=== PATIENT | male | born 1955 | race Caucasian/White ===

== ENCOUNTER 2023-06-08 15:37 | Outpatient (CLI) | payer MEDICARE, SELFPAY ==
[2023-06-08 07:52] LABS: Abs Immature Grans 0.03 10^3/uL (0.0-0.06); Absolute Basophil Count 0.05 10^3/uL (0.0-0.2); Absolute Eosinophil Count 0.34 10^3/uL (0.0-0.7); Absolute Lymphocyte Count 2.04 10^3/uL (1.2-3.4); Absolute Monocyte Count 0.81 10^3/uL (0.1-0.8); Absolute Neutrophil Count 4.68 10^3/uL (1.2-6.7); Basophils % 0.6; Eosinophils % 4.3; HCT 40.6 % (40.0-50.0); HGB 13.2 g/dL (13.5-17.5); Immature Grans % 0.4; Lymphocytes % 25.7; MCHC 32.5 % (32.0-36.0); MCV 92 fL (80-95); MPV 9.6 fL (8.0-11.0); Monocytes % 10.2; Neutrophils % 58.8; Platelet Count 392 10^3/uL (130-400); RDW 13.4 % (11.8-14.1); RDW-SD 45.9 fL; WBC 7.95 10^3/uL (4.4-10.8)
[2023-06-08 08:19] LABS: ALT 17 U/L (16-63); AST 11 U/L (15-37); Albumin 3.8 g/dL (3.4-5.0); Alkaline Phosphatase 61 U/L (46-116); Anion Gap 6.7 mmol/L (3-11); BUN 26 mg/dL (7-18); Bilirubin, Total 0.4 mg/dL (0.2-1.0); CO2 29.3 mmol/L (21.0-32.0); CREATININE 1.5 mg/dL (0.70-1.30); Calcium 9.5 mg/dL (8.5-10.1); Chloride 103 mmol/L (98-107); Estimated GFR 49.77 (mL/min/1.73m2); FREE T4 0.85 ng/dL (0.76-1.46); Glucose 82 mg/dL (74-106); Potassium 4.6 mmol/L (3.5-5.1); Sodium 139 mmol/L (136-145); Total Protein 8.2 g/dL (6.4-8.2)
== END 2023-06-08 15:38 | disposition home or self-care (01) ==
LOC: LBO 06-10 15:37
PROVIDERS: Visit Provider Internal Medicine
DX: C64.2 Malignant neoplasm of left kidney, except renal pelvis (principal); R94.6 Abnormal results of thyroid function studies
CPT/HCPCS: 36415; 80053; 84439; 84443; 85025

== ENCOUNTER 2023-07-05 05:11 | Outpatient (CLI) | payer MEDICARE, SELFPAY ==
[2023-07-05 12:17] LABS: Abs Immature Grans 0.03 10^3/uL (0.0-0.06); Absolute Basophil Count 0.05 10^3/uL (0.0-0.2); Absolute Eosinophil Count 0.32 10^3/uL (0.0-0.7); Absolute Lymphocyte Count 2.12 10^3/uL (1.2-3.4); Absolute Monocyte Count 0.74 10^3/uL (0.1-0.8); Absolute Neutrophil Count 4.61 10^3/uL (1.2-6.7); Basophils % 0.6 %; Eosinophils % 4.1 %; HCT 40.2 % (40.0-50.0); HGB 13.1 g/dL (13.5-17.5); Immature Grans % 0.4 %; Lymphocytes % 26.9 %; MCH 29.8 pg (27.0-33.0); MCHC 32.6 % (32.0-36.0); MCV 92 fL (80-95); Monocytes % 9.4 %; Neutrophils % 58.6 %; Platelet Count 325 10^3/uL (130-400); RBC 4.39 10^6/uL (4.36-5.78); RDW 13.4 % (11.8-14.1); RDW-SD 45.4 fL; WBC 7.87 10^3/uL (4.4-10.8)
[2023-07-05 12:40] LABS: FREE T4 0.94 ng/dL (0.76-1.46); TSH 2.81 uIU/Ml (0.36-3.74)
[2023-07-05 13:35] LABS: ALT 18 U/L (16-63); AST 12 U/L (15-37); Albumin 3.9 g/dL (3.4-5.0); Alkaline Phosphatase 56 U/L (46-116); Anion Gap 9.6 mmol/L (3-11); BUN 21 mg/dL (7-18); Bilirubin, Total 0.3 mg/dL (0.2-1.0); CO2 28.4 mmol/L (21.0-32.0); CREATININE 1.6 mg/dL (0.70-1.30); Calcium 9.3 mg/dL (8.5-10.1); Chloride 103 mmol/L (98-107); Estimated GFR 46.06 (mL/min/1.73m2); Glucose 87 mg/dL (74-106); Sodium 141 mmol/L (136-145)
== END 2023-07-05 05:12 | disposition home or self-care (01) ==
LOC: LBO 05:11
PROVIDERS: Visit Provider Internal Medicine
DX: C64.2 Malignant neoplasm of left kidney, except renal pelvis (principal); R94.6 Abnormal results of thyroid function studies
CPT/HCPCS: 36415; 80053; 84439; 84443; 85025

== ENCOUNTER 2023-07-27 13:30 | Outpatient (CLI) | payer MEDICARE, SELFPAY ==
[2023-07-27 13:10] LABS: Abs Immature Grans 0.03 10^3/uL (0.0-0.06); Absolute Basophil Count 0.04 10^3/uL (0.0-0.2); Absolute Lymphocyte Count 1.98 10^3/uL (1.2-3.4); Absolute Monocyte Count 0.85 10^3/uL (0.1-0.8); Absolute Neutrophil Count 4.67 10^3/uL (1.2-6.7); Basophils % 0.5 %; Eosinophils % 3.8 %; HCT 40.6 % (40.0-50.0); HGB 13.5 g/dL (13.5-17.5); Immature Grans % 0.4 %; Lymphocytes % 25.2 %; MCH 30.1 pg (27.0-33.0); MCHC 33.3 % (32.0-36.0); MCV 90 fL (80-95); Monocytes % 10.8 %; Neutrophils % 59.3 %; Platelet Count 326 10^3/uL (130-400); RBC 4.49 10^6/uL (4.36-5.78); RDW 13.2 % (11.8-14.1); RDW-SD 43.8 fL; WBC 7.87 10^3/uL (4.4-10.8)
[2023-07-27 14:12] LABS: ALT 22 U/L (16-63); AST 14 U/L (15-37); Albumin 3.8 g/dL (3.4-5.0); Alkaline Phosphatase 56 U/L (46-116); Anion Gap 5.9 mmol/L (3-11); BUN 26 mg/dL (7-18); Bilirubin, Total 0.4 mg/dL (0.2-1.0); CO2 29.1 mmol/L (21.0-32.0); CREATININE 1.6 mg/dL (0.70-1.30); Calcium 8.9 mg/dL (8.5-10.1); Chloride 103 mmol/L (98-107); Estimated GFR 46.06 (mL/min/1.73m2); FREE T4 0.87 ng/dL (0.76-1.46); Glucose 92 mg/dL (74-106); Potassium 4.6 mmol/L (3.5-5.1); Sodium 138 mmol/L (136-145); TSH 2.78 uIU/Ml (0.36-3.74); Total Protein 8.1 g/dL (6.4-8.2)
== END 2023-07-27 13:31 | disposition home or self-care (01) ==
PROVIDERS: Visit Provider Internal Medicine
DX: C64.2 Malignant neoplasm of left kidney, except renal pelvis (principal)
CPT/HCPCS: 36415; 80053; 84439; 84443; 85025

== ENCOUNTER 2023-08-17 09:15 | Outpatient (CLI) | payer MEDICARE, SELFPAY ==
[2023-08-17 09:04] LABS: Abs Immature Grans 0.02 10^3/uL (0.0-0.06); Absolute Basophil Count 0.05 10^3/uL (0.0-0.2); Absolute Eosinophil Count 0.29 10^3/uL (0.0-0.7); Absolute Lymphocyte Count 1.89 10^3/uL (1.2-3.4); Absolute Monocyte Count 0.71 10^3/uL (0.1-0.8); Absolute Neutrophil Count 3.83 10^3/uL (1.2-6.7); Basophils % 0.7 %; Eosinophils % 4.3 %; HCT 42.3 % (40.0-50.0); Immature Grans % 0.3 %; Lymphocytes % 27.8 %; MCHC 33.1 % (32.0-36.0); MCV 91 fL (80-95); MPV 9.7 fL (8.0-11.0); Monocytes % 10.5 %; Neutrophils % 56.4 %; Platelet Count 286 10^3/uL (130-400); RBC 4.67 10^6/uL (4.36-5.78); RDW 12.7 % (11.8-14.1); RDW-SD 41.8 fL; WBC 6.79 10^3/uL (4.4-10.8)
[2023-08-17 09:31] LABS: ALT 22 U/L (16-63); AST 13 U/L (15-37); Albumin 3.9 g/dL (3.4-5.0); Alkaline Phosphatase 61 U/L (46-116); Anion Gap 7.7 mmol/L (3-11); BUN 29 mg/dL (7-18); Bilirubin, Total 0.5 mg/dL (0.2-1.0); CO2 27.3 mmol/L (21.0-32.0); CREATININE 1.6 mg/dL (0.70-1.30); Calcium 9.4 mg/dL (8.5-10.1); Chloride 102 mmol/L (98-107); Estimated GFR 46.06 (mL/min/1.73m2); FREE T4 0.87 ng/dL (0.76-1.46); Glucose 104 mg/dL (74-106); Potassium 4.8 mmol/L (3.5-5.1); Sodium 137 mmol/L (136-145); Total Protein 8.2 g/dL (6.4-8.2)
== END 2023-08-17 09:16 | disposition home or self-care (01) ==
LOC: LBO 09:15
PROVIDERS: Visit Provider Internal Medicine
DX: R94.6 Abnormal results of thyroid function studies (principal); C64.2 Malignant neoplasm of left kidney, except renal pelvis
CPT/HCPCS: 36415; 80053; 84439; 84443; 85025

== ENCOUNTER 2023-09-07 14:25 | Outpatient (CLI) | payer MEDICARE, SELFPAY ==
[2023-09-07 11:56] LABS: Abs Immature Grans 0.04 10^3/uL (0.0-0.06); Absolute Basophil Count 0.06 10^3/uL (0.0-0.2); Absolute Eosinophil Count 0.27 10^3/uL (0.0-0.7); Absolute Lymphocyte Count 2.28 10^3/uL (1.2-3.4); Absolute Monocyte Count 0.89 10^3/uL (0.1-0.8); Absolute Neutrophil Count 6.05 10^3/uL (1.2-6.7); Basophils % 0.6 %; Eosinophils % 2.8 %; HCT 40.5 % (40.0-50.0); HGB 13.7 g/dL (13.5-17.5); Immature Grans % 0.4 %; Lymphocytes % 23.8 %; MCH 29.9 pg (27.0-33.0); MCHC 33.8 % (32.0-36.0); MCV 88 fL (80-95); Monocytes % 9.3 %; Neutrophils % 63.1 %; Platelet Count 295 10^3/uL (130-400); RBC 4.58 10^6/uL (4.36-5.78); RDW 12.8 % (11.8-14.1); RDW-SD 40.9 fL; WBC 9.59 10^3/uL (4.4-10.8)
[2023-09-07 12:19] LABS: ALT 22 U/L (16-63); AST 16 U/L (15-37); Albumin 3.9 g/dL (3.4-5.0); Alkaline Phosphatase 57 U/L (46-116); Anion Gap 8.7 mmol/L (3-11); BUN 31 mg/dL (7-18); CO2 28.3 mmol/L (21.0-32.0); CREATININE 1.8 mg/dL (0.70-1.30); Calcium 9.2 mg/dL (8.5-10.1); Chloride 102 mmol/L (98-107); Estimated GFR 39.99 (mL/min/1.73m2); FREE T4 0.84 ng/dL (0.76-1.46); Glucose 121 mg/dL (74-106); Potassium 4.4 mmol/L (3.5-5.1); Sodium 139 mmol/L (136-145); TSH 1.63 uIU/Ml (0.36-3.74); Total Protein 8.1 g/dL (6.4-8.2)
--- OUTSIDE RECORDS SUMMARY | 2023-09-07 14:28 | XMS_ITS | Continuity of Care Document ---
Author Name Unknown Organization [facility] Ambulatory Clinics Address [address] [place] [address] Care Team Providers Care Junior Recruiter Name Role Phone Kaden Ramirez DO Primary Care Physician Encounter [facility] NBR [id number] Date(s): 03/25/23 - 03/25/23 [facility] [address], [place] [address] Discharge Disposition: Home Allergies, Adverse Reactions, Alerts No Known Medication Allergies Assessment and Plan Future Appointments Social History Social History Type Response Tobacco Former tobacco user Tobacco Use:. Sex Male Patient Care team information Care Team Personnel Name: Kaden Ramirez DO Position: Physician Member Role: Primary Care Physician Address: Address: [address] [place] [id number] [place] Care Team Related Persons Name: STUART MARCANO
--- OUTSIDE RECORDS SUMMARY | 2023-09-07 14:28 | XMS_ITS | Continuity of Care Document ---
Author Name Unknown Organization [facility] Address [address] [place] [id number] Care Team Providers Care Stock Room Manager Name Role Phone Kaden Ramirez DO Primary Care Physician Encounter LTTL_KS FIN NBR [id number] Date(s): 03/26/23 - 03/26/[address] [address] Discharge Disposition: Home or Self Care Attending Physician: Kaden Horn MD Admitting Physician: Kaden Horn MD Allergies, Adverse Reactions, Alerts No Known Medication Allergies Assessment and Plan Extracted from: Title:ED Provider Note Author:Iam Doll Date:03/26/23 Ordered: amoxicillin-clavulanate 875 mg-125 mg oral tablet, 1 tab, Oral, every 12 hr, X 10 days, # 20 tab, 0 Refill(s), 04/05/23 14:33:00 EST Eliquis Starter Pack for Treatment of DVT and PE 5 mg oral tablet, See Instructions, as directed on package labeling. 10 mg twice a day for 1 week, then 5 mg twice a day thereafter, # 1 packets, 0 Refill(s) doxycycline hyclate 100 mg oral tablet, 100 mg = 1 tab, Oral, BID, X 10 days, # 20 tab, 0 Refill(s), 04/05/23 14:33:00 EST NS drip 1,000 mL, Total Volume (mL): 1,000, 1,000 mL, Soln-IV, IV, 125 mL/hr, Order Duration: 30 days, Start Date: 03/26/23 12:15:00 EST, Stop Date: 04/25/23 12:14:00 EST, 77 kg, Populate Charting Weight From Order, 1.96, m2 Discharge Patient, 03/26/23 14:17:00 EST, Home Independently Chest x-ray read out as negative but inflammatory markers came back high with elevated white count, sed rate in the mid 80s.?? Accordingly I was concerned he had an on??diagnosed pneumonia or other process. ??Given his cancer history??as well I thought we should CTA him to exclude??a PE.?? The D-dimer came back after this CT angio; the dimer was in the thousands. ??The CT angio does indeed show a blood clot on the left side but he also has smaller ones on the right??(the 1 on the left his left main).?? Additionally he has a small pneumonia.?? I asked radiology if he has any other??cancer etiology for this??PE given the fact that his??testicular cancer was in the remote past I thought that was unlikely.?? On some of the images??of the abdomen??that were visible on the chest CT I did appreciate as did radiology a mass in the left kidney.?? We subsequently obtained??a CT of the abdomen pelvis with contrast??to work this up further.?? 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 There is no active bleeding anywhere on his scans. ??He has no history of bleeding, no contraindications to??anticoagulation.?? The patient is not hypoxic, not tachycardic, there is no evidence of??right heart strain, he is afebrile,??I do not see a reason to admit him??for either anticoagulation??as an inpatient or??antibiotics as an inpatient. ??I gave the patient??10 mg of Eliquis,??first dose of Augmentin and doxycycline;??I think he should take antibiotics for 10 days, continue the Eliquis? ? and I spoke to his primary care provider about the patient needing a referral to either [facility]??or [facility] for workup of this renal mass.?? I contacted [facility] who gave me a phone number [phone]??in order for him to have a primary care referral within the system that can get him??his biopsy;??I??told the??talk at Dr. Ramirez's office??(where he supposed to follow-up on Wednesday)??of our results and the need for urgent workup and if he could arrange that either at [facility] or at [facility] which ever sooner.?? Patient is to be discharged with??Eliquis/Augmentin??(primary care provider thinks we should avoid??Doxy with Augmentin??and he likely does not need double coverage), follow-up with Dr. Villalpando/Kale's office on Wednesday, follow-up with??referral center for further workup of??presumed renal cell carcinoma??and his pulmonary embolus and pneumonia. 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 10 mg twice a day for 1 week, then 5 mg twice a day thereafter, # 1 packets, 0 Refill(s) Start Date: 03/26/23 Status: Ordered Mental Status 03/26/23 Eye Opening Response [place] Spontaneous ly Best Verbal Response [place] Oriented Best Motor Response Brett Obeys comman ds [place] Coma Score 15 Results Laboratory List Name Date Respiratory Panel 2.1 ([facility]) 03/26/23 .Manual Differential (LTTL) 03/26/23 CBC w/ Diff 03/26/23 Comprehensive Metabolic Panel (CMP) 03/26 D-Dimer 03/26/23 Sedimentation Rate (ESR) 03/26/23 Troponin-I High Sensitivity 03/26/23 Most recent to oldest [Reference Range]: 1 WBC [4.8-10.8 K/mcL] 13.7 K/mcL *HI* (03/26/23 11:39 AM) RBC [4.70-6.10 Million/mcL] 3.97 Million /mcL *LOW* (03/26/23 11:39 AM) Segs Man 80 *NA* (03/26/23 11:39 AM) Lymph Man [20.5-51.1 %] 8.0 % *LOW* (03/26/23 11:39 AM) [place] Man [1.7-9.3 %] 11.0 % *HI* (03/26/23 11:39 AM) Eos Man [0.00-3.00 %] 1.00 % (03/26/23 11:39 AM) BUN [7-25 mg/dL] 20 mg/dL (03/26/23 11:39 AM) Glucose Level [70-109 mg/dL] 112 mg/dL *HI* (03/26/23 11:39 AM) Potassium Level [3.5-5.1 mmol/L] 4.2 mmo l/L (03/26/23 11:39 AM) MCV [80.0-94.0 fL] 91.3 fL (03/26/23 11:39 AM) RBC Morph [Normal] Normal (03/26/23 11:39 AM) AST [13-39 IntlUnit/L] 22 IntlUnit/L (03/26/23 11:39 AM) ALT [7-52 IntlUnit/L] 24 IntlUnit/L (03/26/23 11:39 AM) MCHC [32.0-37.0 g/dL] 33.9 g/dL (03/26/23 11:39 AM) Osmolality [275-295 mOsm/kg] 274 mOsm/kg *LOW* (03/26/23 11:39 AM) Sodium Level [136-145 mmol/L] 135 mmol/L *LOW* (03/26/23 11:39 AM) Hct [42.0-52.0 %] 36.2 % *LOW* (03/26/23 11:39 AM) Calcium Level [8.6-10.3 mg/dL] 9.1 mg/dL (03/26/23 11:39 AM) Albumin Level [3.5-5.7 g/dL] 3.8 g/dL (03/26/23 11:39 AM) Protein Total [6.4-8.9 g/dL] 8.0 g/dL (03/26/23 11:39 AM) MCH [27.0-31.0 pg] 30.9 pg (03/26/23 11:39 AM) Bilirubin Total [0.3-1.0 mg/dL] 1.0 mg/d L (03/26/23 11:39 AM) Hgb [14.0-18.0 g/dL] 12.3 g/dL *LOW* (03/26/23 11:39 AM) Alk Phos [34-104 IntlUnit/L] 69 IntlUnit /L (03/26/23 11:39 AM) MPV [7.4-10.4 fL] 8.9 fL (03/26/23 11:39 AM) Band Man 0 % *NA* (03/26/23:39 AM) Platelets [130-400 K/mcL] 347 K/mcL (03/26/23 11:39 AM) CO2 [21-31 mmol/L] 25 mmol/L (03/26/23 11:39 AM) Chloride Level [98-107 mmol/L] 102 mmol/ L (03/26/23 11:39 AM) RDW-CV [11.5-14.5 %] 12.3 % (03/26/23 11:39 AM) Adenovirus RespP-BFire [Not Detected] No t Detected (03/26/23 12:12 PM) Bordetella parapertussis RespP-BFire [No t Detected] Not Detected (03/26/23 12:12 PM) Bordetella pertussis RespP-BFire [Not De tected] Not Detected (03/26/23 12:12 PM) Chlamydophila pneumoniae RespP-BFire [No t Detected] Not Detected (03/26/23 12:12 PM) Coronavirus 229E (Not COVID-19) RP-BFire [Not Detected] Not Detected (03/26/23 12:12 PM) Coronavirus HKU1 (Not COVID-19) RP-BFire [Not Detected] Not Detected (03/26/23 12:12 PM) Coronavirus NL63 (Not COVID-19) RP-BFire [Not Detected] Not Detected (03/26/23 12:12 PM) Coronavirus OC43 (Not COVID-19) RP-BFire [Not Detected] Not Detected (03/26/23 12:12 PM) Human Metapneumonovirus RespP-BFire [Not Detected] Not Detected (03/26/23 12:12 PM) Human Rhinovirus/Enterovirus RespP-BFir [Not Detected] Not Detected (03/26/23 12:12 PM) Influenza A RespP-BFire [Not Detected] N ot Detected (03/26/23 12:12 PM) Influenza B RespP-BFire [Not Detected] N ot Detected (03/26/23 12:12 PM) Mycomplasma pneumoniae RespP-BFire [Not Detected] Not Detected (03/26/23 12:12 PM) Parainfluenza Virus 1 RespP-BFire [Not D etected] Not Detected (03/26/23 12:12 PM) Parainfluenza Virus 2 RespP-BFire [Not D etected] Not Detected (03/26/23 12:12 PM) Parainfluenza Virus 3 RespP-BFire [Not D etected] Not Detected (03/26/23 12:12 PM) Parainfluenza Virus 4 RespP-BFire [Not D etected] Not Detected (03/26/23 12:12 PM) Respiratory Syncytial Virus RespP-BFire [Not Detected] Not Detected (03/26/23 12:12 PM) A/G Ratio [1.0-2.5 g/dL] 0.9 g/dL *LOW* (03/26/23 11:39 AM) BUN/Creat Ratio [8.0-20.0] 20.0 (03/26/23 11:39 AM) Globulin [2.3-3.5 g/dL] 4.2 g/dL *HI* (03/26/23 11:39 AM) Slide Review Man Diff (03/26/23 11:39 AM) Abs Baso Man [0.0-0.2 K/mcL] 0.0 K/mcL (03/26/23 11:39 AM) Abs Eos Man [0.0-0.2 K/mcL] 0.1 K/mcL (03/26/23 11:39 AM) Abs Lymph Man [1.2-3.4 K/mcL] 1.1 K/mcL *LOW* (03/26/23 11:39 AM) Abs [place] Man [0.1-0.6 K/mcL] 1.5 K/mcL *HI* (03/26/23 11:39 AM) Abs Neut Man [1.4-6.5 K/mcL] 11.0 K/mcL *HI* (03/26/23 11:39 AM) Creatinine Level [0.70-1.30 mg/dL] 1.00 mg/dL (03/26/23 11:39 AM) SARS-CoV-2 (COVID-19) RP-BFire [Not Dete cted] Not Detected (03/26/23 12:12 PM) Plt Estimation Normal (03/26/23 11:39 AM) Employed in healthcare? Unknown *NA* (03/26/23 12:12 PM) Symptomatic as defined by CDC? Unknown *NA* (03/26/23 12:12 PM) Hospitalized due to COVID-19? Unknown *NA* (03/26/23 12:12 PM) In ICU? Unknown *NA* (03/26/23 12:12 PM) Group care resident? Unknown *NA* (03/26/23 12:12 PM) status? Unknown *NA* (03/26/23 12:12 PM) Troponin-I HS [<=20 ng/L] 4 ng/L 1 (03/26/23 11:39 AM) Anion Gap [3.0-12.0] 8.0 (03/26/23 11:39 AM) Baso Man [0.0-0.8 %] 0.0 % (03/26/23 11:39 AM) D Dimer, (Quant.) [<=500 ng(FEU)/mL] 347 2 ng(FEU)/mL 2 *HI* (03/26/23 11:39 AM) eGFR CKD-EPI [>=60 mL/min/1.73 m2] 81 mL /min/1.73 m2 (03/26/23 11:39 AM) ESR, Westergren [0-15 mm/hr] 84 mm/hr *HI* (03/26/23 11:39 AM) 1Interpretive Data: The Anthony ACCESS high-sensitivity Troponin I (hsTNI) 99 percentile cutoffs forhealthy adults are 12 ng/L or less for females and 20 ng/L or less for males. SERIAL MEASUREMENT IS HIGHLY RECOMMENDED for the diagnosis or exclusion of Acute Coronary Syndromes(ACS). Please refer to the High-Sensitivity Troponin Algorithm 2022 for guidance. As with all markers of cardiac injury, elevations of hsTnI do not in and of themselves indicate thepresence of an ischemic mechanism. Many other disease states can be associated with elevations via mechanisms different from those that cause injury in patients with ACS. These include trauma (contusion, ablation, pacing); congestive heart failure; pulmonary embolism; kidney failure; and myocarditis. Clinical judgement is necessary to distinguish patients who have ischemic heart disease from those who do not. 2Interpretive Data: A normal D-dimer result (< or =500 ng/mL FEU) has a negative predicitive value of approximately 95% for the exclusion of acute embolism (PE) or deep vein thrombosis when there is low or moderate pretest PE probability. Radiology Reports * Exam Date Time Procedure Performing Provider Status 03/26/23 1:[address] Abdomen and Pelvis w/ Contrast Cielo Valera; Auth (Verified) Notes: (CT Abdomen and Pelvis w/ Contrast) Reason For Exam: l renal mass CT Abdomen and Pelvis w/ Contrast EXAM DESCRIPTION: CT Abdomen and Pelvis w/ Contrast 03/26/2023 INDICATION: L RENAL MASS TECHNIQUE: All CT scans at this facility use at least one of these dose optimization techniques: Automated exposure control; mA and/or kV adjustment per patient size (includes targeted exams where dose is matched to clinical indication); or iterative reconstruction. Technique: Axial CT images of the abdomen/pelvis with IV contrast administration 75 cc of Isovue-300 contrast was utilized COMPARISON: Same date CT angiography chest examination. FINDINGS: Bilateral pulmonary emboli. Please see same date CT angiography chest examination No focal hepatic lesion. Normal enhancement of the main hepatic veins and main portal vein. Normal spleen size without focal mass No calcified gallstones in the gallbladder. Adrenal glands and pancreas appear within normal limits Lobular heterogeneously enhancing mass involving the mid left kidney consistent with neoplasm which was not fully included on imaging volume from CT angiography chest examination performed earlier today. Mass measures approximately 6.1 x 3.2 x 3.7 cm in transverse, AP and CC dimensions respectively. No focal right renal mass. No evidence of left renal vein tumor thrombus. No hydronephrosis or perinephric fluid collection on either side Normal caliber abdominal aorta No retroperitoneal adenopathy in the abdomen or pelvis. The prostate gland is enlarged with indentation of the bladder base. Prostate neoplasm cannot be excluded based on this finding No bowel dilatation to suggest obstruction or ileus. No free intraperitoneal air, ascites or inflammatory changes. Scattered colonic diverticula. Normal appendix. Small fat containing right inguinal hernia. No suspicious regional osseous lesions. Spondylotic changes in the visualized spinal axis. IMPRESSION: Ovoid heterogeneously enhancing left renal mass measuring 6.1 x 3.2 x 3.7 cm consistent with neoplasm Prostate enlargement with indentation of the bladder base. Neoplastic lesion cannot be excluded based on this finding Otherwise no abdominal/pelvic mass or adenopathy. JOB #: [id number] Final Signed by: Warren Zuniga MD Signed (Electronic Signature): 03/26/2023 1:58 pm * Exam Date Time Procedure Performing Provider Status 03/26/23 1:[address] Angio Chest Antonia Devlin; Harrison (Xenia ified) Notes: (CT Angio Chest) Reason For Exam: chest pain CT Angio Chest EXAM DESCRIPTION: CT Angio Chest N/A INDICATION: CHEST PAIN TECHNIQUE: All CT scans at this facility use at least one of these dose optimization techniques: Automated exposure control; mA and/or kV adjustment per patient size (includes targeted exams where dose is matched to clinical indication); or iterative reconstruction. CT angiography examination of the chest with thin section axial images including sagittal and coronal MPR images performed on a separate workstation under concurrent supervision. 100 cc of Isovue 370 contrast was utilized COMPARISON: None FINDINGS: Prominent filling defect consistent with pulmonary embolism involving the distal aspect of the left main pulmonary artery with extensive filling defects consistent with pulmonary emboli involving segmental and subsegmental left lower lobe pulmonary artery branches. Smaller filling defects consistent with pulmonary emboli involving left upper lobe pulmonary branches as well as peripheral right lower lobe pulmonary artery branches. No findings to suggest significant right ventricular strain. Normal caliber thoracic aorta with no evidence of dissection. Patchy areas of infiltrate in the left lower lobe suspicious for pneumonia with mild subsegmental atelectasis or scarring in the right middle lobe, lingula and right lower lobe. No significant emphysematous changes. No central endobronchial filling defect identified Mild left pleural effusion. No right pleural effusion. No pneumothorax No mediastinal, hilar or axillary adenopathy. No pericardial effusion. Ovoid heterogeneously enhancing solid mass extending from the lateral aspect of the mid left kidney measuring 3.6 x 3.4 cm consistent with neoplasm. No mass or adenopathy otherwise noted in the visualized upper abdomen. No suspicious regional osseous lesions. Spondylotic changes in the visualized spinal axis. IMPRESSION: Bilateral pulmonary emboli as detailed above, left greater than right. Left lower lobe infiltrate suspicious for pneumonia with mild left pleural effusion. Left renal mass measuring 3.6 x 3.4 cm consistent with neoplasm. Results discussed with ER physician at the time of interpretation on 03/26/2023 at 1:15 p.m. EST JOB #: [id number] Final Signed by: Warren Zuniga MD Signed (Electronic Signature): 03/26/2023 1:28 pm * Exam Date Time Procedure Performing Provider Status 03/26/23 11:30 AM XR Chest 1 View Antonia Devlin; Auth (V erified) Notes: (XR Chest 1 View) Reason For Exam: PAIN XR Chest 1 View EXAM DESCRIPTION: XR Chest 1 View 03/26/2023 INDICATION: PAIN COMPARISON: None IMPRESSION: No focal consolidation or pulmonary edema with mild subsegmental atelectasis or scarring in the lateral left lung base Normal cardiomediastinal contour. No significant pleural effusion or pneumothorax. Spondylotic changes of the dorsal spine. JOB #: [id number] Final Signed by: Warren Zuniga MD Signed (Electronic Signature): 03/26/2023 11:39 am Vital Signs Most recent to oldest [Reference Range]: 1 2 3 Temperature Oral [35.8-37.3 Deg C] 37.1 Deg C (03/26/23 11:02 AM) Peripheral Pulse Rate [60-100 bpm] 90 bpm (03/26/23 3:13 PM) 87 bpm (03/26/23 2:13 PM) 90 bpm (03/26/23 1:16 PM) Heart Rate Monitored [60-100 bpm] 90 bpm (03/26/23 3:13 PM) 89 bpm (03/26/23 2:13 PM) 89 bpm (03/26/23 1:16 PM) Respiratory Rate [12-24 br/min] 16 br/min (03/26/23 3:13 PM) 27 br/min *HI* (03/26/23 2:13 PM) 27 br/min *HI* (03/26/23 1:16 PM) Blood Pressure [90-140/60-90 mmHg] 132/79mmHg (03/26/23 3:13 PM) 135/66mmHg (03/26/23 2:13 PM) 140/61mmHg (03/26/23 1:16 PM) Mean Arterial Pressure, Cuff [70-110 mmHg] 97 mmHg (03/26/23 3:13 PM) 89 mmHg (03/26/23 2:13 PM) 87 mmHg (03/26/23 1:16 PM) Mean Arterial Pressure Cuff 92 mmHg (03/26/23 3:13 PM) 86 mmHg (03/26/23 2:13 PM) 90 mmHg (03/26/23 12:33 PM) Weight 77 kg (03/26/23 11:02 AM) Weight Dosing 77.000 kg (03/26/23 11:02 AM) Height 180 cm (03/26/23 11:02 AM) Body Mass Index 23.77 kg/m2 (03/26/23 11:02 AM) Social History Social History Type Response Tobacco Former tobacco user Tobacco Use:. Sex Male Physician Emergency department Note * Kaden Horn MD: PERFORM, MODIFY Event Display: ED Note Physician Authored Date: [id number] KRYSINESSA HERMOSILLO Alcides :1955 Age:67 years Sex:Male Visit Date:03/26/2023 Primary Care Physician: Kaden Ramirez DO Basic Information Time Seen: Kaden Horn MD / 03/26/2023 11:11 Chief Complaint low grade fever, dizziness, difficulty taking a deep breath and right lower back pain X 3 weeks. This began after recieving a COVID vaccine. History Of Present Illness: 67-year-old??well man??takes no medications, complaining of weeks of??a cough, left-sided chest discomfort??worse with breathing,??no clear??URI symptoms but has had??low-grade fevers up to 101??off-and-on including in the last few days.?? No significant sputum, no hemoptysis,??no nasal discharge.?? Denies any leg pain or swelling, no prolonged travel, no recent surgeries, no history of thrombosis.?? 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 Review of Systems: Review of Systems: Constitutional: [Low-grade fevers off and on for weeks] Eye: [No acute visual complaints, no eye discharge] ENT: [No ear pain, nasal congestion, sore throat] Respiratory: +shortness of breath??with activity,??+ cough] Cardiovascular: [Left chest discomfort costal??chondral margin??lower left lung Gastrointestinal: [No nausea, vomiting, or diarrhea. No rectal bleeding or melena] Genitourinary: [No dysuria; no hematuria] Musculoskeletal: [No acute back pain, neck pain, joint pain,] Integumentary: [No rashes] Neurologic: [No focal complaints.??No LOC] ?? Physical Exam: General: [Alert, well nourished, no acute distress].?Not tachycardic not hypoxic, resting heart rate in the 60s, pulse ox??mid to high 90s Eye: [PERRL, EOMI, normal conjunctiva]. HENT: [Normocephalic, normal hearing, moist oral mucosa, no scleral icterus, no nasal discharge].?? Neck: [Ranging neck, normal inspection].?? Lungs: [ non-labored respiration, no tachypnea].?Crackles/slightly decreased breath sounds left base Heart: [Normal rate, regular rhythm, no murmurs]. Abdomen: [Soft, non-tender, non-distended].?? Musculoskeletal: [Normal range of motion and strength, no tenderness or swelling]. Skin: [Skin is warm, no rashes]. Neurologic: [Awake, alert and oriented X4, normal tone, moving all extremities with good strength].[Ambulation intact]. Psychiatric: [Cooperative, appropriate mood and affect]. Physical Exam Vitals & Measurements T:??37.1?C ??(Oral)?? HR:??87??(Peripheral)?? HR:??89??(Monitored)?? RR:??27?? BP:??135/66?? SpO2:??97%?? HT:??180??cm?? WT:??77??kg?? BMI:??23.77?? Procedure No Qualifying Data Assessment/Plan Ordered: amoxicillin-clavulanate 875 mg-125 mg oral tablet, 1 tab, Oral, every 12 hr, X 10 days, # 20 tab, 0Refill(s), 04/05/23 14:33:00 EST Eliquis Starter Pack for Treatment of DVT and PE 5 mg oral tablet, See Instructions, as directed onpackage labeling. 10 mg twice a day for 1 week, then 5 mg twice a day thereafter, # 1 packets, 0 Refill(s) doxycycline hyclate 100 mg oral tablet, 100 mg = 1 tab, Oral, BID, X 10 days, # 20 tab, 0 Refill(s), 04/05/23 14:33:00 EST NS drip 1,000 mL, Total Volume (mL): 1,000, 1,000 mL, Soln-IV, IV, 125 mL/hr, Order Duration: 30 days, Start Date: 03/26/23 12:15:00 EST, Stop Date: 04/25/23 12:14:00 EST, 77 kg, Populate Charting Weight From Order, 1.96, m2 Discharge Patient, 03/26/23 14:17:00 EST, Home Independently Chest x-ray read out as negative but inflammatory markers came back high with elevated white count,sed rate in the mid 80s.?? Accordingly I was concerned he had an on??diagnosed pneumonia or other process. ??Given his cancer history??as well I thought we should CTA him to exclude??a PE.?? The D-dimer came back after this CT angio; the dimer was in the thousands. ??The CT angio does indeed show a blood clot on the left side but he also has smaller ones on the right??(the 1 on the left his left main).?? Additionally he has a small pneumonia.?? I asked radiology if he has any other??cancer etiology for this??PE given the fact that his??testicular cancer was in the remote past I thought that was unlikely.?? On some of the images??of the abdomen??that were visible on the chest CT I did appreciate as did radiology a mass in the left kidney.?? We subsequently obtained??a CT of the abdomen pelvis with contrast??to work this up further.?? 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 There is no active bleeding anywhere on his scans. ??He has no history of bleeding, no contraindications to??anticoagulation.?? The patient is not hypoxic, not tachycardic, there is no evidence of??right heart strain, he is afebrile,??I do not see a reason to admit him??for either anticoagulation??as an inpatient or??antibiotics as an inpatient. ??I gave the patient??10 mg of Eliquis,??first dose of Augmentin and doxycycline;??I think he should take antibiotics for 10 days, continue the Eliquis?and I spoke to his primary care provider about the patient needing a referral to either [facility]??or [facility] for workup of this renal mass.?? I contacted [facility] who gave me a phone number [phone]??in order for him to have a primary care referral within the system that can get him??his biopsy;??I??told the??talk at Dr. Ramirez's office??(where he supposed to follow-up on Wednesday)??of our results and the need for urgent workup and if he could arrange that either at [facility] or at [facility] which ever sooner.?? Patient is to be discharged with??Eliquis/Augmentin??(primary care provider thinks hipolito avoid??Doxy with Augmentin??and he likely does not need double coverage), follow-up with /Kale's office on Wednesday, follow-up with??referral center for further workup of??presumed renal cell carcinoma??and his pulmonary embolus and pneumonia. Patient Discharge Condition Stable Discharge Disposition Home Medication Reconciliation New Prescription amoxicillin-clavulanate (amoxicillin-clavulanate 875 mg-125 mg oral tablet)1 tab Oral (given by mouth) every 12 hours for 10 Days. Refills: 0. ?? apixaban (Eliquis Starter Pack for Treatment of DVT and PE 5 mg oral tablet)as directed on package labeling. 10 mg twice a day for 1 week, then 5 mg twice a day thereafter. Refills: 0. ?? doxycycline (doxycycline hyclate 100 mg oral tablet)1 tab Oral (given by mouth) 2 times a day for 10 Days. Refills: 0. Problem List/Past Medical History Ongoing No qualifying data Historical No qualifying data Medication Administration Given NS drip, 1000 mL, IV NS drip, 500 mL, Medication Bolus amoxicillin-clavulanate 875 mg-125 mg oral tablet, 1 tab, Oral doxycycline, 100 mg, Oral Eliquis, 10 mg, Oral ipratropium-albuterol 0.5 mg-2.5 mg/3 mL inhalation solution, 3 mL, Nebulized Inhalation Allergies No Known Medication Allergies Social History Alcohol Current, 1-2 times per week Electronic Cigarette/Vaping Electronic Cigarette Use: Never. Substance Use Never Tobacco Former tobacco user Tobacco Use:. Diagnostic Results CT Abdomen and Pelvis w/ Contrast 03/26/2023 14:[address] Angio Chest 03/26/2023 13:32 EST XR Chest 1 View 03/26/2023 11:[address] Angio Chest ?? 03/26/23 13:28:28 EXAM DESCRIPTION: CT Angio Chest ?? N/A ?? INDICATION: CHEST PAIN ?? TECHNIQUE: All CT scans at this facility use at least one of these dose optimization techniques: Automated exposure control; mA and/or kV adjustment per patient size (includes targeted exams where dose is matched to clinical indication); or iterative reconstruction. ?? CT angiography examination of the chest with thin section axial images including sagittal and coronal MPR images performed on a separate workstation under concurrent supervision. ?? 100 cc of Isovue 370 contrast was utilized ?? COMPARISON: None ?? FINDINGS: Prominent filling defect consistent with pulmonary embolism involving the distal aspect of the left main pulmonary artery with extensive filling defects consistent with pulmonary emboli involving segmental and subsegmental left lower lobe pulmonary artery branches. Smaller filling defects consistent with pulmonary emboli involving left upper lobe pulmonary branches as well as peripheral right lower lobe pulmonary artery branches. No findings to suggest significant right ventricular strain. ?? Normal caliber thoracic aorta with no evidence of dissection. ?? Patchy areas of infiltrate in the left lower lobe suspicious for pneumonia with mild subsegmental atelectasis or scarring in the right middle lobe, lingula and right lower lobe. No significant emphysematous changes. No central endobronchial filling defect identified ?? Mild left pleural effusion. No right pleural effusion. No pneumothorax ?? No mediastinal, hilar or axillary adenopathy. No pericardial effusion. ?? Ovoid heterogeneously enhancing solid mass extending from the lateral aspect of the mid left kidney measuring 3.6 x 3.4 cm consistent with neoplasm. No mass or adenopathy otherwise noted in the visualized upper abdomen. ?? No suspicious regional osseous lesions. Spondylotic changes in the visualized spinal axis. ?? IMPRESSION: Bilateral pulmonary emboli as detailed above, left greater than right. ?? Left lower lobe infiltrate suspicious for pneumonia with mild left pleural effusion. ?? Left renal mass measuring 3.6 x 3.4 cm consistent with neoplasm. ?? Results discussed with ER physician at the time of interpretation on 03/26/2023 at 1:15 p.m. EST ? JOB #: [id number] Electronically Signed By: ?? Signed By: Warren Zuniga MD ?? CT Abdomen and Pelvis w/ Contrast ?? 03/26/23 13:58:23 EXAM DESCRIPTION: CT Abdomen and Pelvis w/ Contrast ?? 03/26/2023 ?? INDICATION: L RENAL MASS ?? TECHNIQUE: All CT scans at this facility use at least one of these dose optimization techniques: Automated exposure control; mA and/or kV adjustment per patient size (includes targeted exams where dose is matched to clinical indication); or iterative reconstruction. ?? Technique: Axial CT images of the abdomen/pelvis with IV contrast administration ?? 75 cc of Isovue-300 contrast was utilized ?? COMPARISON: Same date CT angiography chest examination. ?? FINDINGS: Bilateral pulmonary emboli. Please see same date CT angiography chest examination ?? No focal hepatic lesion. Normal enhancement of the main hepatic veins and main portal vein. ?? Normal spleen size without focal mass ?? No calcified gallstones in the gallbladder. ?? Adrenal glands and pancreas appear within normal limits ?? Lobular heterogeneously enhancing mass involving the mid left kidney consistent with neoplasm which was not fully included on imaging volume from CT angiography chest examination performed earlier today. Mass measures approximately 6.1 x 3.2 x 3.7 cm in transverse, AP and CC dimensions respectively. No focal right renal mass. No evidence of left renal vein tumor thrombus. No hydronephrosis or perinephric fluid collection on either side ?? Normal caliber abdominal aorta ?? No retroperitoneal adenopathy in the abdomen or pelvis. ?? The prostate gland is enlarged with indentation of the bladder base. Prostate neoplasm cannot be excluded based on this finding ?? No bowel dilatation to suggest obstruction or ileus. No free intraperitoneal air, ascites or inflammatory changes. Scattered colonic diverticula. Normal appendix. Small fat containing right inguinal hernia. ?? No suspicious regional osseous lesions. Spondylotic changes in the visualized spinal axis. ?? IMPRESSION: Ovoid heterogeneously enhancing left renal mass measuring 6.1 x 3.2 x 3.7 cm consistent with neoplasm ?? Prostate enlargement with indentation of the bladder base. Neoplastic lesion cannot be excluded based on this finding ?? Otherwise no abdominal/pelvic mass or adenopathy. ? JOB #: [id number] Electronically Signed By: ?? Signed By: Warren Zuniga MD ?? XR Chest 1 View ?? 03/26/23 11:39:34 EXAM DESCRIPTION: XR Chest 1 View ?? 03/26/2023 ?? INDICATION: PAIN ?? COMPARISON: None ?? IMPRESSION: No focal consolidation or pulmonary edema with mild subsegmental atelectasis or scarring in the lateral left lung base ?? Normal cardiomediastinal contour. ?? No significant pleural effusion or pneumothorax. ?? Spondylotic changes of the dorsal spine. ? JOB #: [id number] Electronically Signed By: ?? Signed By: Warren Zuniga MD Lab Results CBC and Differential?? LATEST RESULTS?? WBC?? 03/26/23 11:39?? 13.7 ??High?? RBC?? 03/26/23 11:39?? 3.97 ??Low?? Hgb?? 03/26/23 11:39?? 12.3 ??Low?? Hct?? 03/26/23 11:39?? 36.2 ??Low?? MCV?? 03/26/23 11:39?? 91.3?? MCH?? 03/26/23 11:39?? 30.9?? MCHC?? 03/26/23 11:39?? 33.9?? RDW-CV?? 03/26/23 11:39?? 12.3?? Platelets?? 03/26/23 11:39?? 347?? MPV?? 03/26/23 11:39?? 8.9?? Segs Man?? 03/26/23 11:39?? 80?? Lymph Man?? 03/26/23 11:39?? 8.0 ??Low?? [place] Man?? 03/26/23 11:39?? 11.0 ??High?? Eos Man?? 03/26/23 11:39?? 1.00?? Baso Man?? 03/26/23 11:39?? 0.0?? Band Man?? 03/26/23 11:39?? 0?? Abs Neut Man?? 03/26/23 11:39?? 11.0 ??High?? Abs Lymph Man?? 03/26/23 11:39?? 1.1 ??Low?? Abs [place] Man?? 03/26/23 11:39?? 1.5 ??High?? Abs Eos Man?? 03/26/23 11:39?? 0.1?? Abs Baso Man?? 03/26/23 11:39?? 0.0?? RBC Morph?? 03/26/23 11:39?? Normal?? Plt Estimation?? 03/26/23 11:39?? Normal?? Slide Review?? 03/26/23 11:39?? Man Diff? Miscellaneous Hematology?? LATEST RESULTS?? ESR, Westergren?? 03/26/23 11:39?? 84 ??High? Coagulation?? LATEST RESULTS?? D Dimer, (Quant.)?? 03/26/23 11:39?? 3472 ??High? Routine Chemistry?? LATEST RESULTS?? Sodium Level?? 03/26/23 11:39?? 135 ??Low?? Potassium Level?? 03/26/23 11:39?? 4.2?? Chloride Level?? 03/26/23 11:39?? 102?? CO2?? 03/26/23 11:39?? 25?? Alk Phos?? 03/26/23 11:39?? 69?? AST?? 03/26/23 11:39?? 22?? ALT?? 03/26/23 11:39?? 24?? BUN?? 03/26/23 11:39?? 20?? Glucose Level?? 03/26/23 11:39?? 112 ??High?? Creatinine Level?? 03/26/23 11:39?? 1.00?? BUN/Creat Ratio?? 03/26/23 11:39?? 20.0?? eGFR CKD-EPI?? 03/26/23 11:39?? 81?? Calcium Level?? 03/26/23 11:39?? 9.1?? Protein Total?? 03/26/23 11:39?? 8.0?? Albumin Level?? 03/26/23 11:39?? 3.8?? Globulin?? 03/26/23 11:39?? 4.2 ??High?? A/G Ratio?? 03/26/23 11:39?? 0.9 ??Low?? Bilirubin Total?? 03/26/23 11:39?? 1.0?? Anion Gap?? 03/26/23 11:39?? 8.0?? Osmolality?? 03/26/23 11:39?? 274 ??Low? Cardiac Isoenzymes?? LATEST RESULTS?? Troponin-I HS?? 03/26/23 11:39?? 4? Infectious Disease?? LATEST RESULTS?? Adenovirus RespP-BFire?? 03/26/23 12:12?? Not Detected?? Bordetella parapertussis RespP-BFire?? 03/26/23 12:12?? Not Detected?? Bordetella pertussis RespP-BFire?? 03/26/23 12:12?? Not Detected?? Chlamydophila pneumoniae RespP-BFire?? 03/26/23 12:12?? Not Detected?? Coronavirus 229E (Not COVID-19) RP-BFire?? 03/26/23 12:12?? Not Detected?? Coronavirus HKU1 (Not COVID-19) RP-BFire?? 03/26/23 12:12?? Not Detected?? Coronavirus NL63 (Not COVID-19) RP-BFire?? 03/26/23 12:12?? Not Detected?? Coronavirus OC43 (Not COVID-19) RP-BFire?? 03/26/23 12:12?? Not Detected?? SARS-CoV-2 (COVID-19) RP-BFire?? 03/26/23 12:12?? Not Detected?? Human Metapneumonovirus RespP-BFire?? 03/26/23 12:12?? Not Detected?? Human Rhinovirus/Enterovirus RespP-BFir?? 03/26/23 12:12?? Not Detected?? Influenza A RespP-BFire?? 03/26/23 12:12?? Not Detected?? Influenza B RespP-BFire?? 03/26/23 12:12?? Not Detected?? Mycomplasma pneumoniae RespP-BFire?? 03/26/23 12:12?? Not Detected?? Parainfluenza Virus 1 RespP-BFire?? 03/26/23 12:12?? Not Detected?? Parainfluenza Virus 2 RespP-BFire?? 03/26/23 12:12?? Not Detected?? Parainfluenza Virus 3 RespP-BFire?? 03/26/23 12:12?? Not Detected?? Parainfluenza Virus 4 RespP-BFire?? 03/26/23 12:12?? Not Detected?? Respiratory Syncytial Virus RespP-BFire?? 03/26/23 12:12?? Not Detected?? Employed in healthcare??? 03/26/23 12:12?? Unknown?? Symptomatic as defined by [facility]??? 03/26/23 12:12?? Unknown?? Hospitalized due to COVID-19??? 03/26/23 12:12?? Unknown?? In ICU??? 03/26/23 12:12?? Unknown?? Group care resident??? 03/26/23 12:12?? Unknown?? status??? 03/26/23 12:12?? Unknown? Electronically Signed on 03/26/23 02:36 PM Kaden Horn MD Electronically Signed on 03/26/23 02:59 PM Kaden Horn MD Emergency department Discharge instructions * Kaden Horn MD: PERFORM Event Display: ED Discharge Information Authored Date: [id number] INESSA MARCANO :1955 Age:67 years Sex:Male Visit Date:03/26/2023 Primary Care Physician: Kaden Ramirez DO Discharge Instructions We would like to thank you for allowing us to assist you with your healthcare needs. The following includes patient education materials and information regarding your injury/illness. Discharge Vitals Temperature??(Oral) 98.8 ??F (37.1 ??C) Heart Rate??(Peripheral) 87 Heart Rate??(Monitored) 89 Respiratory Rate?? 27 Blood Pressure?? 135/66?? Height?? 70.87 in (180 cm) Weight?? 169.78 lb (77 kg) BMI?? 23.77 Allergies No Known Medication Allergies What to Do Next Instructions from Your Care Team Take Eliquis as directed??(10 mg twice a day for 7 days, then 5 mg twice a day thereafter), take Augmentin twice a day??for 10 days each.?? Follow-up with??Dr. Ramirez's office Wednesday;??they are to arrange urgent follow-up with either [facility]or [facility]?for biopsy??of your left renal??mass.?? If you develop worsening shortness of breath??bleeding, coughing up blood, worse trouble breathing,??severe belly pain, passing blood in your urine, high fevers, or anything else acutely worsens?return to emergency immediately. Upcoming Scheduled Appointments Wednesday 9:00 AM EST ?? With: Rinku Almaraz MD Where: [facility] Primary Care [facility] [address] [place] [address]- Status: Confirmed You were treated today on an emergency basis; it may be morse to contact your primary care provider to notify them of your visit today. You may have been referred to your regular doctor or a specialist, please follow up as instructed. If your condition worsens or you can't get in to see the doctor, contact the Emergency Department. Medications What How Much When Instructions Next Dose New amoxicillin-clavulanate (amoxicillin-clavulanate 875 mg-125 mg oral tablet) 1 tab Oral (given by mouth) Every 12 hours Duration: 10 Days Printed Prescription New apixaban (Eliquis Starter Pack for Treatment of DVT and PE 5 mg oral tablet) See instructions as directed on package labeling. ??10 mg twice a day for 1 week, then 5 mg twice a day thereafter ?? Printed Prescription Tests Performed Radiology CT Abdomen and Pelvis w/ Contrast 03/26/2023 14:[address] Angio Chest 03/26/2023 13:32 EST XR Chest 1 View 03/26/2023 11:42 EST Medications and Immunizations Administered Given NS drip, 1000 mL, IV NS drip, 500 mL, Medication Bolus amoxicillin-clavulanate 875 mg-125 mg oral tablet, 1 tab, Oral doxycycline, 100 mg, Oral Eliquis, 10 mg, Oral ipratropium-albuterol 0.5 mg-2.5 mg/3 mL inhalation solution, 3 mL, Nebulized Inhalation Lab Test Name Test Result Date/Time WBC 13.7 K/mcL 03/26/2023 11:39 EST RBC 3.97 Million/mcL 03/26/2023 11:39 EST Hgb 12.3 g/dL 03/26/2023 11:39 EST Hct 36.2 % 03/26/2023 11:39 EST MCV 91.3 fL 03/26/2023 11:39 EST MCH 30.9 pg 03/26/2023 11:39 EST MCHC 33.9 g/dL 03/26/2023 11:39 EST RDW-CV 12.3 % 03/26/2023 11:39 EST Platelets 347 K/mcL 03/26/2023 11:39 EST MPV 8.9 fL 03/26/2023 11:39 EST Segs Man 80 03/26/2023 11:39 EST Lymph Man 8.0 % 03/26/2023 11:39 EST [place] Man 11.0 % 03/26/2023 11:39 EST Eos Man 1.00 % 03/26/2023 11:39 EST Baso Man 0.0 % 03/26/2023 11:39 EST Band Man 0 % 03/26/2023 11:39 EST Abs Neut Man 11.0 K/mcL 03/26/2023 11:39 EST Abs Lymph Man 1.1 K/mcL 03/26/2023 11:39 EST Abs [place] Man 1.5 K/mcL 03/26/2023 11:39 EST Abs Eos Man 0.1 K/mcL 03/26/2023 11:39 EST Abs Baso Man 0.0 K/mcL 03/26/2023 11:39 EST RBC Morph Normal 03/26/2023 11:39 EST Plt Estimation Normal 03/26/2023 11:39 EST Slide Review Man Diff 03/26/2023 11:39 EST ESR, Westergren 84 mm/hr 03/26/2023 11:39 EST D Dimer, (Quant.) 3472 ng(FEU)/mL 03/26/2023 11:39 EST Sodium Level 135 mmol/L 03/26/2023 11:39 EST Potassium Level 4.2 mmol/L 03/26/2023 11:39 EST Chloride Level 102 mmol/L 03/26/2023 11:39 EST CO2 25 mmol/L 03/26/2023 11:39 EST Alk Phos 69 IntlUnit/L 03/26/2023 11:39 EST AST 22 IntlUnit/L 03/26/2023 11:39 EST ALT 24 IntlUnit/L 03/26/2023 11:39 EST BUN 20 mg/dL 03/26/2023 11:39 EST Glucose Level 112 mg/dL 03/26/2023 11:39 EST Creatinine Level 1.00 mg/dL 03/26/2023 11:39 EST BUN/Creat Ratio 20.0 03/26/2023 11:39 EST eGFR CKD-EPI 81 mL/min/1.73 m2 03/26/2023 11:39 EST Calcium Level 9.1 mg/dL 03/26/2023 11:39 EST Protein Total 8.0 g/dL 03/26/2023 11:39 EST Albumin Level 3.8 g/dL 03/26/2023 11:39 EST Globulin 4.2 g/dL 03/26/2023 11:39 EST A/G Ratio 0.9 g/dL 03/26/2023 11:39 EST Bilirubin Total 1.0 mg/dL 03/26/2023 11:39 EST Anion Gap 8.0 03/26/2023 11:39 EST Osmolality 274 mOsm/kg 03/26/2023 11:39 EST Troponin-I HS 4 ng/L 03/26/2023 11:39 EST Adenovirus RespP-BFire Not Detected BF 03/26/2023 12:12 EST Bordetella parapertussis RespP-BFire Not Detect-BioFire 03/26/2023 12:12 EST Bordetella pertussis RespP-BFire Not Detect-BioFire 03/26/2023 12:12 EST Chlamydophila pneumoniae RespP-BFire Not Detect-BioFire 03/26/2023 12:12 EST Coronavirus 229E (Not COVID-19) RP-BFire Not Detect-BioFire 03/26/2023 12:12 EST Coronavirus HKU1 (Not COVID-19) RP-BFire Not Detect-BioFire 03/26/2023 12:12 EST Coronavirus NL63 (Not COVID-19) RP-BFire Not Detect-BioFire 03/26/2023 12:12 EST Coronavirus OC43 (Not COVID-19) RP-BFire Not Detect-BioFire 03/26/2023 12:12 EST SARS-CoV-2 (COVID-19) RP-BFire Not Detect-BioFire 03/26/2023 12:12 EST Human Metapneumonovirus RespP-BFire Not Detect-BioFire 03/26/2023 12:12 EST Human Rhinovirus/Enterovirus RespP-BFir Not Detect-BioFire 03/26/2023 12:12 EST Influenza A RespP-BFire Not Detect-BioFire 03/26/2023 12:12 EST Influenza B RespP-BFire Not Detect-BioFire 03/26/2023 12:12 EST Mycomplasma pneumoniae RespP-BFire Not Detect-BioFire 03/26/2023 12:12 EST Parainfluenza Virus 1 RespP-BFire Not Detect-BioFire 03/26/2023 12:12 EST Parainfluenza Virus 2 RespP-BFire Not Detect-BioFire 03/26/2023 12:12 EST Parainfluenza Virus 3 RespP-BFire Not Detect-BioFire 03/26/2023 12:12 EST Parainfluenza Virus 4 RespP-BFire Not Detect-BioFire 03/26/2023 12:12 EST Respiratory Syncytial Virus RespP-BFire Not Detect-BioFire 03/26/2023 12:12 EST Employed in healthcare? Unknown 03/26/2023 12:12 EST Symptomatic as defined by CDC? Unknown 03/26/2023 12:12 EST Hospitalized due to COVID-19? Unknown 03/26/2023 12:12 EST In ICU? Unknown 03/26/2023 12:12 EST Group care resident? Unknown 03/26/2023 12:12 EST status? Unknown 03/26/2023 12:12 EST Patient/Small Business Banking Officer Signature Patient Name:INESSA MARCANO I have received this information and my questions have been answered. Patient/Small Business Banking Officer Name: Patient/Small Business Banking Officer Signature: Relationship to Patient: Witness Name/Signature: Date: Electronically Signed on: 03/26/2023 15:05 ESTSigned by:UMM Patient Care team information Care Team Personnel Name: Kaden Ramirez DO Position: Physician Member Role: Primary Care Physician Address: Address: [address] [place] [id number] [place] Care Team Related Persons Name: STUART MARCANO
--- OUTSIDE RECORDS SUMMARY | 2023-09-07 14:28 | XMS_ITS | Continuity of Care Document ---
Author Name Unknown Organization [facility] Ambulatory [facility] Address [address] [place] [address] Care Team Providers Care Television Newscast Director Name Role Phone Kaden Ramirez DO Primary Care Physician Encounter [facility] NBR [id number] Date(s): 04/23/23 - 04/23/23 [facility] [address] [place] [id number] Discharge Disposition: Home Allergies, Adverse Reactions, Alerts No Known Medication Allergies Assessment and Plan Future Appointments Medications Eliquis 5 mg oral tablet 5 mg = 1 tab, Oral, BID, # 60 tab, 11 Refill(s) Start Date: 04/15/23 Status: Ordered Problem List Condition Confirmation Course Effective Dates Status Health St atus Informant Enlarged prostate Confirmed Active Testicular cancer Confirmed Active Pulmonary embolism Confirmed Active Renal mass, left Confirmed Active Procedures Procedure Date Related Diagnosis Body Site Status Orchiectomy 1 Completed Procedure 2 Completed [id number] 2Greenlight 2018 Social History Social History Type Response Tobacco Former tobacco user Tobacco Use:. Sex Male Patient Care team information Care Team Personnel Name: Kaden Ramirez DO Position: Physician Member Role: Primary Care Physician Address: Address: [address] [place] [id number] Care Team Related Persons Name: STUART MARCANO
--- OUTSIDE RECORDS SUMMARY | 2023-09-07 14:28 | XMS_ITS | Continuity of Care Document ---
Author Name Unknown Organization [facility] Ambulatory Clinics Address [address] [place] [address] Care Team Providers Care Printer Assistant Name Role Phone Kaden Ramirez DO Primary Care Physician Encounter [facility] FIN NBR [id number] Date(s): 03/31/23 - 03/31/23 [facility] Ambulatory Clinics [address] [place] [address]- Encounter Diagnosis Renal cell carcinoma(Discharge Diagnosis) - 03/31/23 Discharge Disposition: Home or Self Care Attending Physician: Rinku Almaraz MD Allergies, Adverse Reactions, Alerts No Known Medication Allergies Functional Status 03/31/23 Living Environment Home Environment No qualifying data available Other exposure to Infectious Disease Non e Medications amoxicillin-clavulanate 875 mg-125 mg oral tablet 1 tab, Oral, every 12 hr, X 10 days, # 20 tab, 0 Refill(s), 04/05/23 1:33:00 PM [employer] Start Date: 03/26/23 Stop Date: 04/05/23 Status: Ordered Eliquis Starter Pack for Treatment of DVT and PE 5 mg oral tablet See Instructions, as directed on package labeling. 10 mg twice a day for 1 week, then 5 mg twice a day thereafter, # 1 packets, 0 Refill(s) Start Date: 03/26/23 Status: Ordered Problem List Condition Confirmation Course Effective Dates Status Health St atus Informant Enlarged prostate Confirmed Active Testicular cancer Confirmed Active Pulmonary embolism Confirmed Active Renal mass, left Confirmed Active Procedures Procedure Date Related Diagnosis Body Site Status Orchiectomy 1 Completed Procedure 2 Completed [id number] 2018 Vital Signs Most recent to oldest [Reference Range]: 1 Temperature Tympanic [36.6-38.1 Deg C] 3 7.0 Deg C (03/31/23 8:52 AM) Apical Heart Rate [60-100 bpm] 77 bpm (03/31/23 8:52 AM) Blood Pressure [90-140/60-90 mmHg] 128/7 0mmHg (03/31/23 8:52 AM) Mean Arterial Pressure, Cuff [70-110 mmH g] 89 mmHg (03/31/23 8:52 AM) Weight 77.6 kg (03/31/23 8:52 AM) Weight Measured (lbs) 171.079 lb (03/31/23 8:52 AM) Weight Dosing 77.600 kg (03/31/23 8:52 AM) [place] Body Weight Calculated 75.3 kg (03/31/23 8:52 AM) Height 180.34 cm (03/31/23 8:52 AM) Height/Length Measured (inches) 71 inch (03/31/23 8:52 AM) BSA Measured 1.97 m2 (03/31/23 8:52 AM) Body Mass Index 23.86 kg/m2 (03/31/23 8:52 AM) Social History Social History Type Response Tobacco Former tobacco user Tobacco Use:. Sex Male Physician Outpatient Note * Rinku Almaraz MD: PERFORM Event Display: Office Clinic Note Physician Authored Date: [id number] INESSA MARCANO :1955 Age:67 years Sex:Male Visit Date:03/31/2023 Primary Care Physician: Kaden Ramirez DO Chief Complaint Pt. is here today for from ED 02/24/24 pt. has had low gradre fever 100.5, for 3 weeks, had ??SOB, dizziness has subsided, from his ED visit, ??Pt. had CT they had found growth on left kidney, and PEpt. had appt @ [facility] Additional Information with Urolog 03/30/23. Where they are planning to do left renal removal Pt. would like to discuss options maybe second opinion. Pt. is currenty taken Eliquis. History of Present Illness 67 y old with 3.6cm L renal mass found on CTA for pulm embolus which was also positive. Was given 10 days of augmentin which he has 5 days left of for CT findings consistent with pneumonia. Was put on eliquis for the PE. Now saw urology who wants to decide how to proceed with radical L nephrectomy in face of PE and anticoagulation; they are thinking a months time. Pt is pain free does have occasional bouts of gen mild cough. 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 Physical Exam Vitals & Measurements T:??37.0?C ??(Tympanic)?? HR:??77??(Apical)?? BP:??128/70?? SpO2:??96%?? HT:??180.34??cm?? WT:??77.6??kg?? BMI:??23.86?? BSA:??1.97?? alert and oriented, appropriate No facial droop, speech clear Neck FROM no goiter, jvd or bruit Chest clear H:RRR no mgr Abd: soft NT no HSM Ext: no edema Skin: no jaundice Medical Decision Makin y old with 3.6 cm central renal mass thought to be renal cell CA, complicated by large L PE and likely post obstructive pneumonia, feels well remains on eliquis and augmentin. Has seen urology who is planning radical L nephrectomy in about a months time. Continue eliquis and?? finish course of augmentin. Will followup in clinic as needed Problem List/Past Medical History Ongoing Enlarged prostate Pulmonary embolism Renal mass, left Testicular cancer Historical No qualifying data Procedure/Surgical History ???Orchiectomy???Procedure Medications amoxicillin-clavulanate 875 mg-125 mg oral tablet, 1 tab, Oral, every 12 hr Eliquis Starter Pack for Treatment of DVT and PE 5 mg oral tablet, See Instructions Allergies No Known Medication Allergies Social History Alcohol Current, 1-2 times per week Electronic Cigarette/Vaping Electronic Cigarette Use: Never. Substance Use Never Tobacco Former tobacco user Tobacco Use:. Family History Enlarged prostate: Brother and Brother. Family Member(s): ?? FATHER, at age: Unknown. Cause of : Family Member(s): ?? MOTHER, at age: Unknown. Cause of : Electronically Signed on 03/31/23 10:05 AM Rinku Almaraz MD Patient Care team information Care Team Personnel Name: Kaden Ramirez DO Position: Physician Member Role: Primary Care Physician Address: Address: [address] [place] [id number] [place] Care Team Related Persons Name: STUART MARCANO
--- OUTSIDE RECORDS SUMMARY | 2023-09-07 14:28 | XMS_ITS | Continuity of Care Document ---
Author Name Unknown Organization [facility] Address [address] [place] [address] Care Team Providers Care Radiology Nurse Name Role Phone Kaden Ramirez DO Primary Care Physician Encounter Date(s): 07/20/23 - 07/20/[address] [address] Encounter Diagnosis Seminoma(Discharge Diagnosis) - 07/20/23 Raised prostate specific antigen(Discharge Diagnosis) - 07/20/23 Benign prostatic hyperplasia with outflow obstruction(Discharge Diagnosis) - 07/20/23 Discharge Disposition: Home or Self Care Attending Physician: Conner Santo MD Admitting Physician: Conner Santo MD Referring Physician: Conner Santo MD Allergies, Adverse Reactions, Alerts No Known Allergies Assessment and Plan Future Appointments Appointment Date:07/30/2023 11:00:00 AM Scheduled Provider:Conner Santo MD Location:[facility] Appointment Type:URO ROV Routine Office Visit Diagnostic Tests Pending * Alpha Fetoprotein Tumor Marker 07/20/23 * Beta-hCG Quant Tumor Marker-[facility] 07/20/23 * PSA Total with Free PSA-[facility] 07/20/23 Problem List Condition Confirmation Course Effective Dates Status H ealth Status Informant Benign prostatic hyperplasia with outflow obstruction Confirmed Active Gastroesophageal reflux disease Confirmed Active Hiatal hernia Confirmed Active Raised prostate specific antigen 1 Confirmed Active Retention of urine Confirmed Active Seminoma 2 Confirmed Active 1Outside Source Comment: Post truss biopsy prostate 04/23/2017 for a PSA of 6.74 negative for malignancy. Findings revealed chronic inflammation and atrophy. Prostate volume 43.1 cc. 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 Tumor markers, sanford ve all been negative. Procedures Procedure Date Related Diagnosis Body Site Status COLLECTION VENOUS BLOOD VENIPUNCTURE 07/20/23 Completed Endoscopy of stomach (procedure) 03/10/12 Completed Testis excision (procedure) 1 01/07/10 Completed Tonsillectomy and adenoidect dalton (procedure) Completed Vasectomy (procedure) Com pleted 1Outside Source Comment: left radical Results Laboratory List Name Date .Estimated Glomerular Filtration Rate Complete Blood Count with Differential ( CBC w/ Differential) 07/20/23 Comprehensive Metabolic Panel (CMP) 07/19 Lactate Dehydrogenase (LDH) 07/20/23 Differential, Auto 07/20/23 Most recent to oldest [Reference Range]: 1 WBC [4.23-9.07 x10^3/mcL] 7.95 x10^3/mcL (07/20/23 1:25 PM) RBC [3.50-5.98 x10^6/mcL] 4.40 x10^6/mcL (07/20/23 1:25 PM) Neutro Auto [40.0-70.0 %] 57.0 % (07/20/23 1:25 PM) Lymph Auto [22.0-44.0 %] 27.3 % (07/20/23 1:25 PM) [place] Auto [4.0-11.0 %] 10.8 % (07/20/23 1:25 PM) Eos Auto [0.0-8.0 %] 4.2 % (07/20/23 1:25 PM) Basophil Auto [0.0-3.0 %] 0.6 % (07/20/23 1:25 PM) BUN [6-26 mg/dL] 28 mg/dL *HI* (07/20/23 1:25 PM) Glucose Level [70-99 mg/dL] 91 mg/dL 1 (07/20/23 1:25 PM) Potassium Level [3.5-5.1 mmol/L] 4.0 mmo l/L (07/20/23 1:25 PM) Absolute Basophil Count [<=0.08 x10^3/mc L] 0.05 x10^3/mcL (07/20/23 1:25 PM) MCV [80.0-100.0 fL] 87.7 fL (07/20/23 1:25 PM) AST [5-32 IntlUnit/L] 15 IntlUnit/L (07/20/23 1:25 PM) ALT [12-78 IntlUnit/L] 18 IntlUnit/L (07/20/23 1:25 PM) MCHC [31.0-37.0 g/dL] 33.9 g/dL (07/20/23 1:25 PM) Sodium Level [136-143 mmol/L] 138 mmol/L (07/20/23 1:25 PM) Absolute Lymphocyte Count [0.73-2.76 x10 ^3/mcL] 2.17 x10^3/mcL (07/20/23 1:25 PM) Hct [35.0-51.0 %] 38.6 % (07/20/23 1:25 PM) Calcium Level [8.3-10.1 mg/dL] 9.2 mg/dL (07/20/23 1:25 PM) Absolute Monocyte Count [0.30-0.82 x10^3 /mcL] 0.86 x10^3/mcL *HI* (07/20/23 1:25 PM) Albumin Level [3.4-4.9 g/dL] 3.8 g/dL (07/20/23 1:25 PM) Protein Total [6.5-8.4 g/dL] 8.3 g/dL (07/20/23 1:25 PM) MCH [24.4-34.5 pg] 29.8 pg (07/20/23 1:25 PM) Bilirubin, Total [0.2-1.0 mg/dL] 0.5 mg/ dL (07/20/23 1:25 PM) Hgb [12.0-17.4 g/dL] 13.1 g/dL (07/20/23 1:25 PM) Alk Phos [45-117 IntlUnit/L] 62 IntlUnit /L (07/20/23 1:25 PM) LDH [100-190 IntlUnit/L] 137 IntlUnit/L (07/20/23 1:25 PM) MPV [9.1-13.2 fL] 11.1 fL (07/20/23 1:25 PM) Platelets [150-400 x10^3/mcL] 300 x10^3/ mcL (07/20/23 1:25 PM) CO2 [21-32 mmol/L] 24 mmol/L (07/20/23 1:25 PM) Absolute Eosinophil Count [0.04-0.54 x10 ^3/mcL] 0.33 x10^3/mcL (07/20/23 1:25 PM) RDW [11.9-16.0 %] 13.1 % (07/20/23 1:25 PM) Chloride Level [101-111 mmol/L] 107 mmol /L (07/20/23 1:25 PM) Creatinine, Enzymatic [0.67-1.17 mg/dL] 1.48 mg/dL *HI* (07/20/23 1:25 PM) Absolute Neutrophil Count [1.78-5.38 x10 ^3/mcL] 4.53 x10^3/mcL (07/20/23 1:25 PM) Globulin [2.7-4.7 g/dL] 4.5 g/dL (07/20/23 1:25 PM) IG Auto [0.0-3.0 %] 0.1 % (07/20/23 1:25 PM) A/G Ratio [0.9-2.3] 0.8 *LOW* (07/20/23 1:25 PM) BUN/Creat Ratio 18.9 ratio 2 *NA* (07/20/23 1:25 PM) Absolute Immature Granulocyte Count [0.0 0-0.40 x10^3/mcL] <0.04 x10^3/mcL (07/20/23 1:25 PM) eGFR CKD-EPI [>=60 mL/min/1.73m2] 51 mL/ min/1.73m2 *LOW* (07/20/23 1:25 PM) Anion Gap [2.0-11.0] 7.0 (07/20/23 1:25 PM) 1Interpretive Data: Impairment: Fasting glucose 100-125 mg/dL Diabetes Mellitus: Fasting glucose >=126 mg/dL Random glucose >=200 mg/dL 2Interpretive Data: The BUN/Creatinine ratio has a low predictive value and results should not be considered an absolute indicator of a specific disease process. Most individuals have a reference interval between 12 and 20. The ratio should only be utilized as a rough guide to the nature of an underlying abnormality. High ratio with normal creatinine levels are associated with prerenal azotemia (high protein intake, increased tissue breakdown and after gastrointestinal hemorrhage). High ratio with elevated creatinine levels are seen in postrenal azotemia (i.e. urinary tract obstruction) Low ratios are associated with decreased urea production, low protein intake, starvation, severe liver damage and acute tubular necrosis. In most cases of chronic renal disease, the ratio remains relatively normal. Social History Social History Type Response Smoking Status Never smoker; Type: Cigarettes entered on: 04/27/22 Sex Male Patient Care team information Care Team Personnel Name: Kaden Ramirez DO Position: Physician - Primary Care Member Role: Primary Care Provider Address: Address: [address] [place] [phone]- Care Team Related Persons Name: CONNER MARCANO
--- OUTSIDE RECORDS SUMMARY | 2023-09-07 14:28 | XMS_ITS | Continuity of Care Document ---
Author Name Unknown Organization [facility] Address [address] [place] [address] Care Team Providers Care Nail Technician Name Role Phone Kaden Ramirez DO Primary Care Physician [phone] Encounter 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 Testicular cancer(Discharge Diagnosis) - 07/14/23 Pulmonary embolism(Discharge Diagnosis) - 07/14/23 Malignant neoplasm of unspecified kidney, except renal pelvis(Final) - Malignant neoplasm of unspecified testis, unspecified whether descended or undescended(Final) - Other pulmonary embolism without acute cor pulmonale(Final) - Discharge Disposition: Home or Self Care Attending Physician: Kaden Ramirez DO Allergies, Adverse Reactions, Alerts No Known Medication Allergies Assessment and Plan Extracted from: Title:Office Visit Note Author:Kaden Ramirez DO Date:07/14/23 1.??Clear cell renal cell ca rcinoma??C64.9 ??Tolerated the nephrectomy surgery,??recovered okay.?? Now undergoing??infusions, which she seems to tolerating well. 2.??Testicular cancer??C62.90 ??Also removed at time of kidney??surgery. 3.??Pulmonary embolism??I26.99 ??Continues on Eliquis, at least for 3 months.?? Considering whether he should stay on it for treatment for his cancer.?? Will defer to hematology/oncology. Future Appointments Immunizations Given and Recorded Vaccine Date Status Refusal Reason tetanus/diphth/pertuss (Tdap) adult/adol 12/24/14 Recorded Medications Eliquis 5 mg oral tablet 5 mg = 1 tab, Oral, BID, # 60 tab, 11 Refill(s) Start Date: 04/15/23 Status: Ordered Problem List Condition Confirmation Course Effective Dates Status Health St atus Informant Enlarged prostate Confirmed Active Testicular cancer Confirmed Active Pulmonary embolism Confirmed Active Procedures Procedure Date Related Diagnosis Body Site Status Orchiectomy 1 Completed Procedure 2 Completed Procedure 3 Completed [id number] 2[facility] 2018 3Left kidney removal April 20 2023..in [facility] Vital Signs Most recent to oldest [Reference Range]: 1 Peripheral Pulse Rate [60-100 bpm] 54 bp m *LOW* (07/14/23 8:43 AM) Blood Pressure [90-140/60-90 mmHg] 132/7 8mmHg (07/14/23 8:43 AM) Mean Arterial Pressure, Cuff [65-140 mmH g] 96 mmHg (07/14/23 8:43 AM) Weight 74.20 kg (07/14/23 8:43 AM) Weight Measured (lbs) 163.583 lb (07/14/23 8:43 AM) Weight Dosing 74.200 kg (07/14/23 8:43 AM) Social History Social History Type Response Tobacco Former tobacco user Tobacco Use:. Sex Male Hospital Discharge Instructions Follow Up Care 06/03/2023 10:28:12 With:Kaden Ramirez DO Address: [address] [place] [phone] When:1 Year Physician Outpatient Note * Kaden Ramirez DO: PERFORM Event Display: Office Clinic Note Physician Authored Date: [id number] INESSA MARCANO :1955 Age:68 years Sex:Male Visit Date:07/14/2023 Primary Care Physician: Kaden Ramirez DO Chief Complaint Patient is here today for a 3 month follow up. Has had 2 infusions History of Present Illness Patient is a 68-year-old male who comes in today for follow-up.?? Had a left nephrectomy. ??Sees oncology.?? Seems to be tolerating infusions well. ??Continues on his Eliquis.?? Have indicated that he can come off after 3 months, although there was some question in the oncology note as to whether he should stay on it at least through treatment??for his cancer. Review of Systems See HPI otherwise negative. Physical Exam Vitals & Measurements HR:??54??(Peripheral)?? BP:??132/78?? SpO2:??98%?? WT:??74.20??kg?? General: Alert and oriented, well nourished,?No??acute distress Lungs: Clear to auscultation and percussion,?Non-labored?? respiration Heart:?Normal? rate,?Regular??rhythm,?No??murmur,?No??gallop,?No??edema Abdomen: Soft, non-tender, non-distended,?Normal? bowel sounds,?No??masses Musculoskeletal:?Normal? range of motion and strength,?No??tenderness,?No??swelling ?? Assessment/Plan 1.??Clear cell renal cell carcinoma??C64.9 ??Tolerated the nephrectomy surgery,??recovered okay.?? Now undergoing??infusions, which she seems to tolerating well. 2.??Testicular cancer??C62.90 ??Also removed at time of kidney??surgery. 3.??Pulmonary embolism??I26.99 ??Continues on Eliquis, at least for 3 months.?? Considering whether he should stay on it for treatment for his cancer.?? Will defer to hematology/oncology. Follow Up Instructions With When Contact Information Kaden Ramirez DO Within 1 Year [address] [place] [address] Additional Instructions: Problem List/Past Medical History Ongoing Enlarged prostate Pulmonary embolism Testicular cancer Historical Renal mass, left Procedure/Surgical History ???Orchiectomy???Procedure???Procedure Medications Eliquis 5 mg oral tablet, 5 mg= 1 tab, Oral, BID, 11 refills Allergies No Known Medication Allergies Social History Alcohol Past, 1-2 times per week Electronic Cigarette/Vaping Electronic Cigarette Use: Never. Substance Use Never Tobacco Former tobacco user Tobacco Use:. Family History Enlarged prostate: Brother and Brother. Family Member(s): ?? FATHER, at age: Unknown. Cause of : Family Member(s): ?? MOTHER, at age: Unknown. Cause of : Immunizations Vaccine Date Status tetanus/diphth/pertuss (Tdap) adult/adol 12/24/2014 Recorded Electronically Signed on 07/14/23 09:33 AM Kaden Ramirez DO Patient Care team information Care Team Personnel Name: Kaden Ramirez DO Position: Physician Member Role: Primary Care Physician Address: Address: [address] [place] [phone] [place] Care Team Related Persons Name: STUART MARCANO
--- OUTSIDE RECORDS SUMMARY | 2023-09-07 14:28 | XMS_ITS | Continuity of Care Document ---
Author Name Unknown Organization [facility] Address [address] [place] [address] Care Team Providers Care Roadside Mechanic Name Role Phone Kaden Ramirez DO Primary Care Physician Encounter [facility] [facility] NBR [id number] Date(s): 03/26/23 - 03/26/23 [facility] [address] [place] [id number] Discharge Disposition: Home Allergies, Adverse Reactions, Alerts No Known Medication Allergies Assessment and Plan Future Appointments Medications amoxicillin-clavulanate 875 mg-125 mg oral tablet 1 tab, Oral, every 12 hr, X 10 days, # 20 tab, 0 Refill(s), 04/05/23 1:33:00 PM 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 10 mg twice a day for 1 week, then 5 mg twice a day thereafter, # 1 packets, 0 Refill(s) Start Date: 03/26/23 Status: Ordered Social History Social History Type Response Tobacco Former tobacco user Tobacco Use:. Sex Male Patient Care team information Care Team Personnel Name: Kaden Ramirez DO Position: Physician Member Role: Primary Care Physician Address: Address: [address] [place] [phone] [place] Care Team Related Persons Name: STUART MARCANO
--- OUTSIDE RECORDS SUMMARY | 2023-09-07 14:28 | XMS_ITS | Continuity of Care Document ---
Author Name Unknown Organization [facility] Address [address] [place] [phone] Care Team Providers Care Oil Tanker Captain Name Role Phone Kaden Ramirez DO Primary Care Physician Encounter [facility] NBR [id number] Date(s): 05/31/23 - 05/31/[address] [address] [place] Discharge Disposition: Home or Self Care Attending Physician: ANAYELI MAYEN ([facility])LIDA Admitting Physician: ANAYELI MAYEN ([facility])LIDA Referring Physician: ANAYELI MAYEN ([facility])LIDA Allergies, Adverse Reactions, Alerts No Known Medication [...] Status Orchiectomy 1 Completed [facility] 2 [id number] Results Rad[facility] Reports * Exam Date Time Procedure Performing Provider Status 05/31/23 3:[address] Abdomen and Pelvis w/ Contrast Antonia Bonilla; Harrison (Verified) Notes: (CT Abdomen and Pelvis w/ Contrast) Reason For Exam: CLEAR CELL RENAL CELL CARCINOMA CT Abdomen and Pelvis w/ Contrast PROCEDURE INFORMATION: Exam: CT Abdomen And Pelvis With Contrast Exam date and time: 05/31/2023 2:53 PM Age: 68 years old Clinical indication: Malignant neoplasm of left kidney, except renal pelvis; Additional info: Clear cell renal cell carcinoma TECHNIQUE: Imaging protocol: Computed tomography of the abdomen and pelvis with contrast. Radiation optimization: All CT scans at this facility use at least one of these dose optimization techniques: automated exposure control; mA and/or kV adjustment per patient size (includes targeted exams where dose is matched to clinical indication); or iterative reconstruction. Contrast material: ISOVUE 300; Contrast volume: 100 ml; Contrast route: INTRAVENOUS (IV); COMPARISON: CT ABD/PELVIS W CONTRAST 03/26/2023 1:35 PM FINDINGS: Lungs: Findings in lung bases described separately in same-day CT chest report Liver: Normal. No mass. Gallbladder and bile ducts: Normal. No calcified stones. No ductal dilation. Pancreas: Normal. No ductal dilation. Spleen: Normal. No splenomegaly. Adrenal glands: Normal. No mass. Kidneys and ureters: Left kidney is now surgically absent Stomach and bowel: Unremarkable. No obstruction. No mucosal thickening. Appendix: No evidence of appendicitis. Intraperitoneal space: Unremarkable. No free air. No significant fluid collection. Vasculature: Unremarkable. No abdominal aortic aneurysm. Lymph nodes: Unremarkable. No enlarged lymph nodes. Urinary bladder: Unremarkable as visualized. Reproductive: Heterogeneous mildly enlarged prostate again noted Bones/joints: Unremarkable. No acute fracture. Soft tissues: Unremarkable. IMPRESSION: No acute findings. Status post left nephrectomy THIS DOCUMENT HAS BEEN ELECTRONICALLY SIGNED BY SEA DE LA O MD on 05/31/2023 04:07 PM Final Signed by: Sea De La O MD Signed (Electronic Signature): 05/31/2023 4:07 pm * Exam Date Time Procedure Performing Provider Status 05/31/23 3:[address] Chest w/ Contrast Antonia Devlin; Harrison (Verified) Notes: (CT Chest w/ Contrast) Reason For Exam: CLEAR RENAL CELL CARCINOMA CT Chest w/ Contrast PROCEDURE INFORMATION: Exam: CT Chest With Contrast; Diagnostic Exam date and time: 05/31/2023 2:53 PM Age: 68 years old Clinical indication: Malignant neoplasm of left kidney, except renal pelvis; Additional info: Clear renal cell carcinoma TECHNIQUE: Imaging protocol: Diagnostic computed tomography of the chest with contrast. Radiation optimization: All CT scans at this facility use at least one of these dose optimization techniques: automated exposure control; mA and/or kV adjustment per patient size (includes targeted exams where dose is matched to clinical indication); or iterative reconstruction. Contrast material: ISOVUE 300; Contrast volume: 100 ml; Contrast route: INTRAVENOUS (IV); COMPARISON: CT ANGIO CHEST 03/26/2023 12:56 PM FINDINGS: Lungs: Lungs are mildly hyperinflated. No consolidation. No pulmonary nodules. Linear bands of scarring lateral left lower lobe Pleural spaces: Unremarkable. No pneumothorax. No pleural effusion. Heart: Unremarkable. No cardiomegaly. No pericardial effusion. Lymph nodes: Unremarkable. No enlarged lymph nodes. 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 Bones/joints: Unremarkable. No acute fracture. Soft tissues: Unremarkable. IMPRESSION: No acute findings. No evidence of metastatic disease to thorax THIS DOCUMENT HAS BEEN ELECTRONICALLY SIGNED BY SEA DE LA O MD on 05/31/2023 04:11 PM Final Signed by: Sea De La O MD Signed (Electronic Signature): 05/31/2023 4:11 pm Social History Social History Type Response Tobacco Former tobacco user Tobacco Use:. Sex Male Patient Care team information Care Team Personnel Name: Kaden Ramirez DO Position: Physician Member Role: Primary Care Physician Address: Address: [address] [place] [phone] [place] Care Team Related Persons Name: STUART MARCANO
--- OUTSIDE RECORDS SUMMARY | 2023-09-07 14:28 | XMS_ITS | Continuity of Care Document ---
Author Name Unknown Organization [facility] Address [address] [place] [phone] Care Team Providers Care Cutting Machine Fixer Name Role Phone Kaden Ramirez DO Primary Care Physician Encounter Date(s): 07/30/23 - 07/30/23 [facility] [address] [place] [phone] Encounter Diagnosis Benign prostatic hyperplasia with outflow obstruction(Discharge Diagnosis) - 07/30/23 Raised prostate specific antigen(Discharge Diagnosis) - 07/30/23 Seminoma(Discharge Diagnosis) - 07/30/23 Discharge Disposition: Home or Self Care Attending Physician: Conner Santo MD Allergies, Adverse Reactions, Alerts No Known Allergies Assessment and Plan Extracted from: Title:Urology Office Visit Note Author:Conner Santo MD Date:07/30/23 2.??Raised prostate specific antigen rising PSA (6.7 from 4.2). No KINGSLEY abnormality.?Brother with a history of prostate cancer.?? Discussed moving forward with prostate MRI patient agrees. ??Will follow-up??after image to discuss results and??possible MRI fusion??prostate biopsy. Ordered: MRI Prostate w/ + w/o Contrast(MRI Prostate w/ + w/o Contrast [id number]), 07/30/23, Routine, Reason: Other (please specify), Reason: elevated psa, Raised prostate specific antigen Benign prostatic hyperplasia with outflow obstruction, ABN Status: Not Required, [facility], CPT4 Code: 59999 ?? 3.??Seminoma No evidence of disease recurrence since??left radical orchiectomy and??2010.?? I discussed with him that it is reasonable to discontinue??tumor marker monitoring??he is in agreement ?? Future Appointments Appointment Date:09/03/2023 11:00:00 AM Scheduled Provider:Conner Santo MD Location:[facility] Appointment Type:URO ROV Routine Office Visit Future Scheduled Tests Radiology* MRI Prostate w/ + w/o Contrast 07/30/23 Medications No Known Medications Problem List Condition Confirmation Course Effective Dates [...] Procedure Date Related Diagnosis Body Site Status Endoscopy of stomach (procedure) 03/10/12 Completed Testis excision (procedure) 1 01/07/10 Completed Tonsillectomy and adenoidect dalton (procedure) Completed Vasectomy (procedure) Com pleted 1Outside Source Comment: left radical Vital Signs Most recent to oldest [Reference Range]: 1 Height/Length [124.5-243.8 cm] 182 cm (07/30/23 10:53 AM) Weight Measured 74.4 kg (07/30/23 10:53 AM) Blood Pressure [90-140/60-90 mmHg] 108/7 6mmHg (07/30/23 10:53 AM) Blood Pressure Location Right arm (07/30/23 10:53 AM) Cuff Type Adult (07/30/23 10:53 AM) Social History Social History Type Response Smoking Status Never smoker; Type: Cigarettes entered on: 07/30/23 Sex Male Patient Care team information Care Team Personnel Name: Kaden Ramirez DO Position: Physician - Primary Care Member Role: Primary Care Provider Address: Address: [address] [place] [address] Care Team Related Persons Name: CONNER MARCANO
--- OUTSIDE RECORDS SUMMARY | 2023-09-07 14:28 | XMS_ITS | Continuity of Care Document ---
Author Name Unknown Organization [facility] Address [address] [place] [address] Care Team Providers Care Environmental Health Safety Manager Name Role Phone Kaden Ramirez DO Primary Care Physician [phone] Encounter [facility] NBR [id number] Date(s): 04/15/23 - 04/15/23 [facility] [address] [place] [address]- Encounter Diagnosis Pulmonary embolism(Discharge Diagnosis) - 04/15/23 Renal mass, left(Discharge Diagnosis) - 04/15/23 Other pulmonary embolism without acute cor pulmonale(Final) - Other specified disorders of kidney and ureter(Final) - Discharge Disposition: Home or Self Care Attending Physician: Kaden Ramirez DO Allergies, Adverse Reactions, Alerts No Known Medication Allergies Assessment and Plan Extracted from: Title:Office Visit Note Author:Kaden Ramirez DO Date:04/15/23 1.??Pulmonary embolism??I26. 99 Will continue Eliquis??until directed to switch to Lovenox by the surgeons.?? Will restart??Eliquis when directed by surgery??after hemostasis achieved. 2.??Renal mass, left??N28.89 Will await pathology and further recommendations from??the surgery team. Orders: Eliquis 5 mg oral tablet, 5 mg = 1 tab, Oral, BID, # 60 tab, 11 Refill(s) Future Appointments Medications Eliquis 5 mg oral [...] Status Orchiectomy 1 Completed Procedure 2 Completed [id number] Vital Signs Most recent to oldest [Reference Range]: 1 Peripheral Pulse Rate [60-100 bpm] 62 bp m (04/15/23 10:49 AM) Blood Pressure [90-140/60-90 mmHg] 128/7 8mmHg (04/15/23 10:49 AM) Mean Arterial Pressure, Cuff [70-110 mmH g] 95 mmHg (04/15/23 10:49 AM) Weight 77.2 kg (04/15/23 10:49 AM) Weight Measured (lbs) 170.197 lb (04/15/23 10:49 AM) Weight Dosing 77.200 kg (04/15/23 10:49 AM) Social History Social History Type Response Tobacco Former tobacco user Tobacco Use:. Sex Male Physician Outpatient Note * Kaden Ramirez DO: PERFORM Event Display: Office Clinic Note Physician Authored Date: [id number] INESSA MARCANO :1955 Age:67 years Sex:Male Visit Date:04/15/2023 Primary Care Physician: Kaden Ramirez DO Chief Complaint here today for ED follow from 03/26. would like refill [facility] History of Present Illness Patient is a 67-year-old male who comes in today for follow-up.?? Was seen in the ED in March. ??Found to have??a PE. ??Also found to have a mass on his kidney.?? Planning to have a nephrectomy??next week.?? Sounds like they are having him stop the Eliquis now, transitioning to Lovenox bridge??prior to surgery. Review of Systems See HPI otherwise negative. Physical Exam Vitals & Measurements HR:??62??(Peripheral)?? BP:??128/78?? SpO2:??98%?? WT:??77.2??kg?? General: Alert and oriented, well nourished,?No??acute distress Lungs: Clear to auscultation and percussion,?Non-labored?? respiration Heart:?Normal? rate,?Regular??rhythm,?No??murmur,?No??gallop,?No??edema Musculoskeletal:?Normal? range of motion and strength,?No??tenderness,?No??swelling Assessment/Plan 1.??Pulmonary embolism??I26.99 Will continue Eliquis??until directed to switch to Lovenox by the surgeons.?? Will restart??Eliquiswhen directed by surgery??after hemostasis achieved. 2.??Renal mass, left??N28.89 Will await pathology and further recommendations from??the surgery team. Orders: Eliquis 5 mg oral tablet, 5 mg = 1 tab, Oral, BID, # 60 tab, 11 Refill(s) Problem List/Past Medical History Ongoing Enlarged prostate Pulmonary embolism Renal mass, left Testicular cancer Historical No qualifying data Procedure/Surgical History ???Orchiectomy???Procedure Medications Eliquis 5 mg oral tablet, 5 [...] Unknown. Cause of : Electronically Signed on 04/15/23 01:13 PM Kaden Ramirez DO Patient Care team information Care Team Personnel Name: Kaden Ramirez DO Position: Physician Member Role: Primary Care Physician Address: Address: [address] [place] [phone] [place] Care Team Related Persons Name: STUART MARCANO
== END 2023-09-07 14:26 | disposition home or self-care (01) ==
LOC: LBO 14:27
PROVIDERS: Visit Provider Internal Medicine
DX: R94.6 Abnormal results of thyroid function studies (principal); C64.2 Malignant neoplasm of left kidney, except renal pelvis
CPT/HCPCS: 36415; 80053; 84439; 84443; 85025

== ENCOUNTER 2023-09-27 02:23 | Outpatient (CLI) | payer MEDICARE, SELFPAY ==
[2023-09-27 12:52] LABS: Abs Immature Grans 0.03 10^3/uL (0.0-0.06); Absolute Basophil Count 0.06 10^3/uL (0.0-0.2); Absolute Eosinophil Count 0.31 10^3/uL (0.0-0.7); Absolute Lymphocyte Count 2.17 10^3/uL (1.2-3.4); Absolute Monocyte Count 0.77 10^3/uL (0.1-0.8); Absolute Neutrophil Count 4.98 10^3/uL (1.2-6.7); Basophils % 0.7 %; Eosinophils % 3.7 %; HCT 41.2 % (40.0-50.0); HGB 13.8 g/dL (13.5-17.5); Immature Grans % 0.4 %; Lymphocytes % 26.1 %; MCH 30.2 pg (27.0-33.0); MCHC 33.5 % (32.0-36.0); MCV 90 fL (80-95); Monocytes % 9.3 %; Neutrophils % 59.8 %; Platelet Count 302 10^3/uL (130-400); RBC 4.57 10^6/uL (4.36-5.78); RDW 12.7 % (11.8-14.1); RDW-SD 41.7 fL; WBC 8.32 10^3/uL (4.4-10.8)
[2023-09-27 13:24] LABS: ALT 21 U/L (16-63); AST 15 U/L (15-37); Albumin 3.9 g/dL (3.4-5.0); Alkaline Phosphatase 56 U/L (46-116); Anion Gap 10.8 mmol/L (3-11); BUN 40 mg/dL (7-18); Bilirubin, Total 0.59 mg/dL (0.2-1.0); CO2 27.2 mmol/L (21.0-32.0); CREATININE 1.8 mg/dL (0.70-1.30); Calcium 9.5 mg/dL (8.5-10.1); Chloride 102 mmol/L (98-107); Estimated GFR 39.99 (mL/min/1.73m2); FREE T4 0.81 ng/dL (0.76-1.46); Glucose 134 mg/dL (74-106); Potassium 4.6 mmol/L (3.5-5.1); Sodium 140 mmol/L (136-145); TSH 1.57 uIU/Ml (0.36-3.74)
== END 2023-09-27 02:24 | disposition home or self-care (01) ==
LOC: LBO 02:23
PROVIDERS: Visit Provider Internal Medicine
DX: R94.6 Abnormal results of thyroid function studies (principal); C64.2 Malignant neoplasm of left kidney, except renal pelvis
CPT/HCPCS: 36415; 80053; 84439; 84443; 85025